=== PATIENT | female | born 1940 | race Caucasian/White ===

== ENCOUNTER → 2018-01-03 | Outpatient (CLI) | payer MEDICARE, OTHER | END | disposition home or self-care (01) | LOC: CDC 14:46 | DX: Z01.810 Encounter for preprocedural cardiovascular examination (principal); I45.10 Unspecified right bundle-branch block | CPT/HCPCS: 93000 ==

== ENCOUNTER 2018-03-31 09:30 | Inpatient (IN) | payer OTHER ==
[~2018-03-31] VITALS: Ht 162.6 cm; Wt 38.0 kg
[2018-03-31 10:37] LABS: BASOPHIL (%) 0.4 % (0-1); EOSINOPHIL (%) 0.1 % (0-5); HEMATOCRIT 37.7 % (36.0-46.0); HEMOGLOBIN 12.5 G/DL (11.9-15.5); IMMATURE GRANULOCYTE (%) 0.6 % (0.0-0.7); LYMPHOCYTE (%) 6.2 % (15-42); LYMPHOCYTE COUNT 0.6 K/uL (1.0-2.8); MCH 29.7 PG (29.0-34.0); MCHC 33.2 G/DL (30.0-36.0); MCV 89.5 FL (83-99); MONOCYTE (%) 1.8 % (3-12); MONOCYTE COUNT 0.2 K/uL (0-0.8); NEUTROPHIL (%) 90.9 % (45-76); NEUTROPHIL COUNT 9.4 K/uL (1.8-6.4); PLATELET COUNT 268 K/uL (156-360); RBC DIS.WIDTH-CV 14.1 % (11.8-14.6); RBC DIS.WIDTH-SD 45.6 % (39-53); RED BLOOD COUNT 4.21 M/uL (3.80-5.20); WHITE BLOOD COUNT 10.3 K/uL (4.1-10.2)
[2018-03-31 10:47] LABS: ALBUMIN 4.1 g/dL (3.2-4.8)
[2018-03-31 10:48] LABS: CHLORIDE 106 mEq/L (99-109); POTASSIUM 4.4 mEq/L (3.7-5.4); SODIUM 138 mEq/L (136-147)
[2018-03-31 10:50] LABS: GLUCOSE 218 mg/dL (70-99); TOTAL PROTEIN 6.9 g/dL (6.4-8.3)
[2018-03-31 10:52] LABS: TOTAL BILIRUBIN 0.5 mg/dL (0.0-1.0)
[2018-03-31 10:53] LABS: ALKALINE PHOSPHATASE 76 IU/L (3-129)
[2018-03-31 10:54] LABS: CREATININE 0.9 mg/dL (0.6-1.3); GFR ESTIMATE (CALCULATED) > 59 mL/min/
[2018-03-31 10:55] LABS: AST (GOT) 21 IU/L (2-34); UREA NITROGEN (BUN) 27 mg/dL (9-23)
[2018-03-31 10:57] LABS: ALT (GPT) 20 IU/L (3-49); LIPASE 36 U/L (1.0-51.0)
[2018-03-31 11:57] LABS: APPEARANCE SL.HAZY ((CLEAR)); BILIRUBIN NEGATIVE; BLOOD LARGE; COLOR YELLOW ((YELLOW)); GLUCOSE (STRIP) 150; KETONES 5; LEUKOCYTES NEGATIVE; NITRITE NEGATIVE; PROTEIN (STRIP) 100; SPECIFIC GRAVITY 1.016 (1.000-1.030); UROBILINOGEN 0.2 MG/DL (0.2-1.0)
[2018-03-31 12:11] LABS: BACTERIA RARE /HPF; EPITHELIAL CELLS 1+ /HPF; HYALINE CASTS 0-5 /LPF; MUCUS TRACE /LPF; RED BLOOD CELLS TNTC /HPF (0-5); UCUL ADDED? YES
[2018-03-31] MEDS ORDERED: GLUCOPHAGE XR,500 MG PO (14:42)
[2018-03-31] MEDS ORDERED: ZESTRIL40 MG PO (14:42)
[2018-03-31] MEDS ORDERED: NORVASC5 MG PO (14:42)
[2018-03-31] MEDS ORDERED: FLOMAX0.4 MG PO (14:42)
[2018-03-31] MEDS ORDERED: BISOPROLOL FUMAR5 MG PO (14:43)
[2018-03-31] MEDS ORDERED: PRAVACHOL40 MG PO (14:43)
[2018-03-31] MEDS ORDERED: LO-DOSE ASPIRIN81 M1 PO (14:44)
[2018-03-31] MEDS ORDERED: CENTRUM SILVER1 EAC3 PO (14:44)
[2018-03-31 15:51] VITALS: BP 139/65
[2018-03-31 19:24] VITALS: BP 136/63
[2018-03-31 23:04] VITALS: BP 119/77
[2018-04-01 05:07] VITALS: BP 118/83
[2018-04-01 05:43] LABS: HEMATOCRIT 35.4 % (36.0-46.0); HEMOGLOBIN 11.4 G/DL (11.9-15.5); MCH 29.7 PG (29.0-34.0); MCHC 32.2 G/DL (30.0-36.0); MCV 92.2 FL (83-99); PLATELET COUNT 278 K/uL (156-360); RBC DIS.WIDTH-CV 14.5 % (11.8-14.6); RBC DIS.WIDTH-SD 49.2 % (39-53); RED BLOOD COUNT 3.84 M/uL (3.80-5.20); WHITE BLOOD COUNT 9.6 K/uL (4.1-10.2)
[2018-04-01 06:01] LABS: CHLORIDE 111 MEQ/L (99-109); CREATININE 0.8 MG/DL (0.6-1.3); GFR ESTIMATE (CALCULATED) > 59 mL/min/; POTASSIUM 4.5 MEQ/L (3.7-5.4); SODIUM 144 MEQ/L (136-147); UREA NITROGEN (BUN) 19 mg/dL (9-23)
[2018-04-01 06:06] LABS: GLUCOSE 109 mg/dL (70-99)
[2018-04-01 08:24] VITALS: BP 118/64
[2018-04-01 16:15] VITALS: BP 135/62
[2018-04-01 19:00] VITALS: BP 159/75
[2018-04-01 23:38] VITALS: BP 145/65
[2018-04-02 03:48] VITALS: BP 126/60
[2018-04-02 07:01] VITALS: BP 138/66
== END 2018-04-02 11:14 | disposition home or self-care (01) | DRG 660 ==
LOC: EME 09:30 → CANRESERV 14:11 → ENRESERV 14:11 → 2EAST 14:25 → EDOF 14:25 → 2EAST 15:35
PROVIDERS: Emergency Medicine; Hospitalist; Urology
DX: N13.2 Hydronephrosis with renal and ureteral calculous obstruction (principal); E78.5 Hyperlipidemia, unspecified; I10 Essential (primary) hypertension; E11.9 Type 2 diabetes mellitus without complications; N21.0 Calculus in bladder; N81.11 Cystocele, midline; Z87.442 Personal history of urinary calculi; Z85.3 Personal history of malignant neoplasm of breast
CPT/HCPCS: 74018; 74176; 76000; 80048; 80053; 81003; 82365 90; 82948; 83690; 85025; 85027; 87040; 87086; 99281; 99285; C2625; J0690; J0696; J1815; J1885; J2405; J3010; J7030